=== PATIENT | female | born 1965 | race Caucasian/White ===

== ENCOUNTER 2017-06-01 18:16 | Emergency (ER) | payer OTHER ==
[~2017-06-01] VITALS: Ht 162.6 cm; Wt 66.2 kg
[2017-06-01 19:06] LABS: BASOPHIL % 0.8 % (0-2); PLATELET COUNT 277 x10^3mcL (130-400); RED CELL DISTRIBUTION WIDTH 12.5 % (11.5-14.5)
[2017-06-01 19:10] LABS: CALCIUM 8.7 mg/dL (8.5-10.1); CARBON DIOXIDE 30.7 mmol/L (21-32); CHLORIDE SERUM 106 mmol/L (98-107); GFR1 > 60 mL/min; GLUCOSE SERUM 100 mg/dL (74-106); POTASSIUM SERUM 3.5 mmol/L (3.5-5.1); SODIUM SERUM 141 mmol/L (136-145)
[2017-06-01 19:16] LABS: ALBUMIN 3.6 g/dL (3.4-5.0); ALKALINE PHOSPHATASE 87 U/L (46-116); ALT/SGPT 31 U/L (14-59); AST/SGOT 26 U/L (15-37); BILIRUBIN TOTAL 0.3 mg/dL (0.20-1.00); LIPASE 126 IU/L (73-393); TOTAL PROTEIN, SERUM 7.4 g/dL (6.4-8.2)
[2017-06-01 20:27] VITALS: BP 115/71
== END 2017-06-01 20:27 | disposition home or self-care (01) ==
LOC: ED 18:16
PROVIDERS: Emergency Medicine
DX: K80.50 Calculus of bile duct without cholangitis or cholecystitis without obstruction (principal); K21.9 Gastro-esophageal reflux disease without esophagitis; Z88.0 Allergy status to penicillin
CPT/HCPCS: 83880; 86788; 86789; J1885; Q0092

== ENCOUNTER 2018-11-08 17:32 | Emergency (ER) | payer OTHER ==
[~2018-11-08] VITALS: Ht 162.6 cm; Wt 68.5 kg
[2018-11-08 17:46] VITALS: Ht 162.6 cm; Wt 68.5 kg
[2018-11-08 20:42] VITALS: BP 112/74
== END 2018-11-08 20:01 | disposition home or self-care (01) ==
LOC: ED 17:32
DX: M70.51 Other bursitis of knee, right knee (principal); K21.9 Gastro-esophageal reflux disease without esophagitis; Z88.0 Allergy status to penicillin; Z90.49 Acquired absence of other specified parts of digestive tract; Z90.89 Acquired absence of other organs; Y93.89 Activity, other specified